=== PATIENT | male | born 1970 | race Caucasian/White ===

== ENCOUNTER 2021-10-05 13:53 | Emergency (ER) | payer OTHER, SELFPAY ==
--- NOTE | 2021-10-05 14:14 | ED.BACK ---
HPI - Back Pain/Injury General Chief Complaint: Back Pain/Injury Stated Complaint: lower back pain Time Seen by Provider: 10/05/21 14:16 Source: patient Mode of arrival: ambulatory Limitations: no limitations History of Present Illness HPI Narrative: 50 y/o male presented for c/o mid/right lower back pain after bending over yesterday. States he felt a pop and has had pain since. Pain is constant, sharp/ache. Pain is not radiating to hips/legs, denies numbness, tingling or weakness of the extremities, loss of b/b or saddle paresthesia. He states he slept well through the night but this morning the pain was more severe. He took ibuprofen this morning with moderate relief. Endorses history of degenerative disc disease and in the past has 'thrown his back out,' and felt better with steroids and muscle relaxer. He works as a [employer] machinist. Related Data Allergies Allergy/AdvReac Type Severity Reaction Status Date / Time No Known Allergies Allergy Verified 10/05/21 14:14 Review of Systems Review of Systems: CONSTITUTIONAL: Denies body aches, fever, chills EYES: Denies visual changes CARDIOVASCULAR: Denies chest pain, palpitations, or edema. RESPIRATORY: Denies cough or dyspnea. GASTROINTESTINAL: Denies abdominal pain, nausea, vomiting, or diarrhea. SKIN: Denies rash, itching, or wounds. MUSCULOSKELETAL: reports back pain NEUROLOGIC: Denies headache, numbness, tingling, or weakness. All systems reviewed & are unremarkable except as noted in HPI and below PMFSH Surgical History Surgical History History of back surgery lower back 2015 Family History Family History Mother Breast cancer Father Malignant neoplasm of prostate Social History Social History Smoking status: Current every day smoker (vapes.) Tobacco type: cigarettes and e-cigarettes/vaping Second hand tobacco smoke exposure: Yes Alcohol intake: current Drinks per week: 1 Substance use: never Comments At time of signature, I have reviewed and agree with nursing past medical, surgical, social and family history unless otherwise noted. Please see nursing chart for further information. There is no relevant family history pertinent to the presenting complaint Exam Narrative: GENERAL: Well-appearing EYES: conjunctivae clear NECK: Supple. full ROM CHEST: Speaks in full sentences. No respiratory distress. HEART: Regular rate and rhythm. Normal and equal peripheral pulses. MUSC: Paraspinal tenderness to right L4 area. No Vertebral point tenderness. BLEs with normal strength and sensation, normal range of motion, endorses pain to right lower back with movement. No open wounds or lesions. pulse palpable and equal bilaterally, skin warm, dry, pink. Capillary refill less than 3 seconds. Gait steady. SKIN: Warm, dry, no rash. NEURO: Alert and oriented x3. Course Course Emergency Course: Patient is aware of diagnosis, understands and agrees to treatment plan. Anticipatory guidance given. Patient agrees to follow-up as directed and is aware of reasons to seek care at the emergency department. Portions of this record may have been created with voice recognition software Level of Care: Express Care Visit Vital Signs Vital signs: Vital Signs Temperature 99 F 10/05/21 14:16 Pulse Rate 96 10/05/21 14:16 Respiratory Rate 16 10/05/21 14:16 Blood Pressure 161/106 H 10/05/21 14:16 Pulse Oximetry 99 10/05/21 14:16 Temperature 99 F 10/05/21 14:16 Pulse Rate 96 10/05/21 14:16 Respiratory Rate 16 10/05/21 14:16 Blood Pressure 161/106 H 10/05/21 14:16 Pulse Oximetry 99 10/05/21 14:16 Reviewed MDM - Back Pain/Injury MDM Narrative Medical decision making narrative: Deferred imaging due to no vertebral point tenderness and the mechanism of injury. Advised s
[2021-10-05 14:16] VITALS: BP 161/106; PULSE 96; RESP 16; TEMP 37.2; O2SAT 99
[2021-10-05] MEDS: methylPREDNISolone ACETATE 80 MG/ML VIAL IM (14:32)
== END 2021-10-05 14:43 | disposition home or self-care (01) ==
PROVIDERS: Emergency Provider Nurse Practitioner Family; PCP Clinical Nurse Specialist
DX: S39.012A Strain of muscle, fascia and tendon of lower back, initial encounter (principal); X50.9XXA Other and unspecified overexertion or strenuous movements or postures, initial encounter; F17.290 Nicotine dependence, other tobacco product, uncomplicated
CPT/HCPCS: 96372; 99213; G0463; J1040

== ENCOUNTER → 2022-01-07 13:51 | Outpatient (CLI) | payer OTHER, SELFPAY ==
--- NOTE | ~2022-01-07 | XR_ITS ---
XR ankle RT min 3V DATE: 01/07/2022 14:14 INDICATION: Right ankle pain TECHNIQUE: 4 views COMPARISON: None FINDINGS: No fracture or dislocation of the ankle or disruption of the ankle mortise. No periosteal r eaction or bone destruction. IMPRESSION: No significant abnormality Reviewed, dictated and finalized at location B. FORMER IMPRESSION: No significant abnormality
== END ==
PROVIDERS: PCP Nurse Practitioner; Visit Provider Nurse Practitioner
DX: M25.571 Pain in right ankle and joints of right foot (principal)
CPT/HCPCS: 73610

== ENCOUNTER 2022-01-21 15:36 | Outpatient (CLI) | payer OTHER, SELFPAY ==
[2022-01-21 20:50] LABS: Basophils Absolute Auto 0.1 K/mm3 (0.0-0.1); Eosinophils Absolute Auto 0.3 K/mm3 (0-0.3); Eosinophils Percent Auto 3.5 % (0-4.4); Hematocrit 46.8 % (42.0-52.0); Hemoglobin 15.5 g/dL (14.0-18.0); Immature Granulocyte Absolute 0.02 K/mm3 (0.00-0.031); Immature Granulocyte Percent A 0.2 % (0-0.5); Lymphocytes Absolute Auto 1.47 K/mm3 (0.9-3.2); Lymphocytes Percent Auto 16.9 % (18.3-44.2); Mean Corpuscular HGB Conc 33.1 g/dl (32-36); Mean Corpuscular Hemoglobin 32.2 pg (26-34); Mean Corpuscular Volume 97.1 fl (80-100); Mean Platelet Volume 10.3 fl (7.4-10.4); Monocytes Percent Auto 10.9 % (2.6-8.5); Neutrophils Absolute Auto 5.9 K/mm3 (1.3-6.7); Neutrophils Percent Auto 67.5 % (45.5-73.1); Platelet Count Result 306 k/mm3 (150-375); Red Blood Count 4.82 M/mm3 (4.6-6.20); White Blood Count 8.7 K/mm3 (4.5-10.0)
[2022-01-21 21:02] LABS: Alanine Aminotransferase 22 U/L (6-50); Albumin Level 4.6 g/dL (3.5-5.1); Alkaline Phosphatase 70 U/L (38-126); Anion Gap 9 mmol/L (8-16); Aspartate Amino Transferase 27 U/L (17-59); Bilirubin,Total 0.6 mg/dL (0.2-1.3); Blood Urea Nitrogen 13 mg/dL (9-20); Calcium 9.3 mg/dL (8.4-10.2); Carbon Dioxide 29 mmol/L (22-30); Chloride 99 mmol/L (98-107); Estimated Glomerular Filt Rate > 60; Glucose 95 mg/dL (65-110); Sodium 137 mmol/L (137-145); Uric Acid 5.8 mg/dL (3.5-8.5)
[2022-01-21 21:14] LABS: Prostate Specific Antigen 0.8 ng/mL (< OR = 4.0); Rheumatoid Factor < 8.6 IU/ML (<12)
[2022-01-21 21:45] LABS: Erythrocyte Sedimentation Rate 12 mm/hr (0-20)
[2022-01-24 11:46] LABS: ANA Cascade Screen Negative (Negative)
== END 2022-01-21 15:37 | disposition home or self-care (01) ==
LOC: ANHGOSHLAB 15:37
PROVIDERS: PCP Internal Medicine; Visit Provider Nurse Practitioner
DX: M25.579 Pain in unspecified ankle and joints of unspecified foot (principal); Z80.42 Family history of malignant neoplasm of prostate
CPT/HCPCS: 36415; 80053; 84153; 84550; 85025; 85652; 86038; 86140; 86430; G0103

== ENCOUNTER 2023-07-12 15:18 | Outpatient (CLI) | payer BC, SELFPAY ==
--- NOTE | ~2023-07-12 | XR_ITS ---
EXAM: XR finger 2nd RT min 2V DATE: 07/12/2023 15:30 HISTORY: S69.90XA - Unspecified injury of unspecified wrist, hand ... . COMPARISON: None available. FINDINGS: Normal mineralization. Small triangular ossific fragment off the dorsal and proximal aspec t of the right second distal phalange. No lytic or blastic lesion. Joint spaces and physes are mainta ined. No erosion or periosteal change. Soft tissue swelling over the second DIP joint punctate radiop aque debris adjacent to the dorsal DIP joint. IMPRESSION: Small avulsion fracture off the dorsal and proximal aspect of the right second distal pha galdamez with accompanying soft tissue swelling and punctate radiopaque debris. Reviewed, dictated and finalized at location K. IMPRESSION: Small avulsion fracture off the dorsal and proximal aspect of the r ight second distal phalange with accompanying soft tissue swelling and punctate radiopaque debris.
== END 2023-07-12 15:19 ==
PROVIDERS: PCP Internal Medicine; Visit Provider Internal Medicine
DX: S62.610A Displaced fracture of proximal phalanx of right index finger, initial encounter for closed fracture (principal); X58.XXXA Exposure to other specified factors, initial encounter
CPT/HCPCS: 73140